=== PATIENT | female | born 1940 | race Caucasian/White ===

== ENCOUNTER 2016-10-18 21:55 | Observation (INO) | payer OTHER ==
[2016-10-18 22:53] LABS: RBC URINE 4 /hpf (0-3); TRANSITIONAL EPITHIAL < 1 /hpf (0-3); URINE BACTERIA RARE (<OCC); URINE BILIRUBIN NEGATIVE (NEGATIVE); URINE BLOOD 1+ (NEGATIVE); URINE COLOR Colorless (YELLOW); URINE GLUCOSE (UA) NORMAL (Normal); URINE KETONE NEGATIVE (NEGATIVE); URINE LEUKOCYTE ESTERASE TRACE Leu/uL (Negative); URINE PROTEIN NEGATIVE (NEGATIVE); URINE UROBILINOGEN NORMAL mg/dL (0.2-1.0); WBC URINE 3 /hpf (0-5)
--- NOTE | 2016-10-19 00:39 | CT ---
EXAM: CT Abdomen and Pelvis Without Intravenous Contrast CLINICAL HISTORY: 76 years old, female; Pain; Abdominal pain; Patient HX: 10-25-15. Prior images sent already; Additional info: Right flank pain TECHNIQUE: Axial computed tomography images of the abdomen and pelvis without intravenous contrast. All CT scans at this facility use one or more dose reduction techniques, viz.: automated exposure control; ma/kV adjustment per patient size (including targeted exams where dose is matched to indication; i.e. head); or iterative reconstruction technique. Coronal and sagittal reformatted images were created and reviewed. COMPARISON: CT - PELVIS W/O CONTRAST 12/29/2014 9:47:16 AM FINDINGS: Lower thorax: Bibasilar atelectasis. ABDOMEN: Liver: No acute findings Gallbladder and bile ducts: The gallbladder is absent. No intra-extrahepatic biliary ductal dilation. Pancreas: Limited evaluation secondary to the lack of intravenous contrast. Spleen: No acute findings. Adrenals: No acute findings. Kidneys and ureters: No obstructing stones. No hydronephrosis. PELVIS: Bladder: No acute findings. Reproductive: No acute findings. Appendix: The appendix is of normal caliber (series 2, image 61; series 601, image 53). ABDOMEN and PELVIS: Stomach and bowel: No acute findings. Colonic diverticulosis, without CT evidence of diverticulitis. Peritoneum: No acute findings. Lymph nodes: Limited evaluation without intravenous contrast. Vasculature: No aortic aneurysm. Calcified atherosclerotic disease. Bones: No acute fracture. IMPRESSION: No obstructive uropathy. The appendix is normal. Colonic diverticulosis, without inflammation.
--- NOTE | 2016-10-19 00:47 | C.PDOC ---
History Of Present Illness 76 y/o female with hx lower back pain c/o worsened right side lower back pain and flank pain for last day or so, similar to pain she has had in past, that is worse with movement., pt initially reports that she saw Dr Berger on Sun; he applied a lidoderm patch and prescribed medications for pain that she was unable to pick pulling machine tender due to pain. pt denies urinary symptoms, fever, chills, abdominal pain, nausea, vomiting, bladder or bowel dysfunction. pt did not take any thing for pain at home. Time Seen by Provider: 10/18/16 22:13 Chief Complaint (Nursing): Back Pain History Per: Patient History/Exam Limitations: no limitations Onset/Duration Of Symptoms: Days (2) Current Symptoms Are (Timing): Worse Quality Of Discomfort: "Pain" Severity: Moderate Previous Symptoms: Back Pain, Chronic Pain Associated Symptoms: denies: Incontinence, New Weakness, New Numbness Exacerbating Factor(s): Turning, Movement Recent travel outside of the [place]: No Past Medical History Reviewed: Historical Data, Nursing Documentation, Vital Signs Vital Signs: Last Vital Signs Temp 97 F L 10/19/16 06:24 Pulse 62 10/19/16 06:24 Resp 16 10/19/16 06:24 BP 132/80 10/19/16 06:24 Pulse Ox 100 10/19/16 06:38 - Medical History PMH: Diverticulitis, Fractures, Gastritis, Gastrointestinal Ulcer, HTN, Hypercholesterolemia, Rheumatoid Arthritis Denies: Chronic Kidney Disease - [facility] Procedures EXTIRPATION OF MATTER FROM R UP ARM TENDON, OPEN APPROACH (12/31/14) REPOSITION RIGHT RADIUS WITH INT FIX, OPEN APPROACH (12/31/14) TETANUS TOXOID ADMINIST (09/25/13) Family History: States: Unknown Family Hx - Social History Hx Tobacco Use: No Hx Alcohol Use: No Hx Substance Use: No - Immunization History Hx Tetanus Toxoid Vaccination: No Hx Influenza Vaccination: Yes Hx Pneumococcal Vaccination: No Review Of Systems Constitutional: Negative for: Fever, Chills Cardiovascular: Negative for: Chest Pain, Palpitations Respiratory: Negative for: Cough, Shortness of Breath Gastrointestinal: Negative for: Nausea, Vomiting, Abdominal Pain Genitourinary: Negative for: Dysuria, Frequency, Incontinence, Hematuria Musculoskeletal: Positive for: Back Pain (right flank and lumbar area) Skin: Negative for: Rash Neurological: Negative for: Weakness, Numbness Physical Exam - Physical Exam Appears: Non-toxic, Other (appear uncomfortable) Skin: Normal Color, Warm Head: Atraumatic, Normacephalic Gastrointestinal/Abdominal: Soft, No Tenderness Back: Normal Inspection, No CVA Tenderness, No Vertebral Tenderness, Paraspinal Tenderness (right side), Straight Leg Raising (right ), Other (right thoracolumbar tenderness, paravertebral, no erythema, warmth or swelling noted. ) Pulses: Left Dorsalis Pedis: Normal, Right Dorsalis Pedis: Normal Neurological/Psych: Oriented x3, Normal Speech, Normal Cognition, Normal Cranial Nerves, Normal Motor, Normal Sensation ED Course And Treatment O2 Sat by Pulse Oximetry: 100 Medical Decision Making Medical Decision Making: pt with changing story; requesting injection for pain, refuses morphine. pt to be put on obs for now until pain resolved since pt reports no way to get home. pt offered tramadol for pain but refused. pt slept comfortably all night. pt told nurse, but not me, that she wants gabapentin, sts she takes it qhs but ran out and forgot to ask her pmd for refill yesterday. pt seen walking around ed with no signs of discomfort. will give pt rx for gabapentin with pmd f/u. Disposition Counseled Patient/Family Regarding: Diagnosis, Need For Followup, Rx Given - Disposition Disposition: HOME/ ROUTINE Disposition Time: 06:38 Condition: IMPROVED - Clinical Impression Clinical Impression: Back pain
[2016-10-19] MEDS ORDERED: Tramadol 25 mg PO STA (02:20)
[2016-10-19 06:25] VITALS: BP 132/80; PULSE 62; RESP 16; TEMP 97
[2016-10-19 06:27] VITALS: O2SAT 100
== END 2016-10-19 06:38 | disposition home or self-care (01) ==
LOC: C.ER 21:55 → C.9OBSV 10-19 02:30
PROVIDERS: ADMIT Emergency Medicine; ATTEND Emergency Medicine
DX: M54.5 Low back pain (principal); I10 Essential (primary) hypertension; E78.00 Pure hypercholesterolemia, unspecified
CPT/HCPCS: 74176; 81001; G0378